=== PATIENT | male | born 1980 | race Two or more races ===

== ENCOUNTER 2023-09-16 00:34 | Emergency (ER) | payer MEDICAID ==
[~2023-09-16] VITALS: Ht 195.6 cm; Wt 81.8 kg
[2023-09-16 01:28] VITALS: TEMP 97.6; O2SAT 95
[2023-09-16] MEDS: ONDANSETRON ODT 4 MG TAB PO ONE (01:54)
[2023-09-16] MEDS: MORPHINE SULFATE 4 MG/ML SYR/VIAL IM ONE (01:58)
[2023-09-16 03:43] VITALS: BP 104/62; PULSE 74; RESP 16
[2023-09-16] MEDS ORDERED: HYDR-4902 PO (04:10)
[2023-09-16] MEDS ORDERED: TRAM50TA2 PO (21:42)
== END 2023-09-16 05:04 | disposition home or self-care (01) ==
LOC: ER 00:34
DX: S90.32XA Contusion of left foot, initial encounter (principal); S97.82XA Crushing injury of left foot, initial encounter; X58.XXXA Exposure to other specified factors, initial encounter; Y93.89 Activity, other specified; Y92.89 Other specified places as the place of occurrence of the external cause; Y99.8 Other external cause status
CPT/HCPCS: 29515; 73610; 73630; 96372; 99284; J2270; Q0162